=== PATIENT | male | born 1960 | race African-American/Black ===

== ENCOUNTER 2016-07-04 11:20 | Emergency (ER) | payer OTHER ==
[~2016-07-04 11:20] MED LIST: ASAB PO; COREG6 PO; FESO4 PO; FLOMAX4 PO; GLUCPH PO; INSNOVR SC; LEVEMFLXPN SC; LEVEMIR SC; NOVOLOG SC; NOVOLOG SQ; PRILOSEC OTC20 MG PO
[2016-07-04 13:07] LABS: ASCORBIC ACID (UR NOT ORDER) NEG (NEG); BILIRUBIN, URINE NEGATIVE (NEG); ER URINALYSIS TAT 0 Hrs 19 Mins; KETONE, URINE NEGATIVE (NEG); LEUKOCYTE ESTERASE(NOT OR NEG (NEG); NITRITE (URINE) NEG (NEG); WBC (NOT ORDERED) (RFLEX) 1 (0-5)
[2016-07-04 14:18] LABS: BASOPHILS 0.4 %; BASOPHILS ABSOLUTE 0.02 10/3/uL (0.0-0.16); EOSINOPHILS 0.4 %; EOSINOPHILS ABSOLUTE 0.02 10/3/uL (0.0-0.53); ER CBC TAT 0 Hrs 13 Mins; HEMATOCRIT 35.1 % (40.0-51.0); HEMOGLOBIN 11.2 g/dL (13.6-17.8); IMMATURE GRANULOCYTES 1.4 %; IMMATURE GRANULOCYTES ABSOLUTE 0.08 10/3/uL (0.0-0.11); LYMPHOCYTES 15.8 %; LYMPHOCYTES ABSOLUTE 0.89 10/3/uL (0.67-4.30); MANUAL DIFF NO %; MEAN CORPUS HGB CONC 31.9 g/dL (32.0-36.0); MEAN CORPUSCULAR VOLUME 87.8 fL (80-100); MEAN PLATELET VOLUME 9.2 fL (9.2-13.0); MONOCYTES 12.7 %; MONOCYTES ABSOLUTE 0.72 10/3/uL (0.21-1.20); NEUTROPHILS 69.3 %; NEUTROPHILS ABSOLUTE 3.92 10/3/uL (2.02-8.40); PLATELET COUNT 171 10/3/uL (150-400); RBC DISTRIBUTION WIDTH 16.1 % (12.0-16.0); WHITE BLOOD CELLS 5.7 10/3/uL (4.5-10.5)
[2016-07-04 16:06] LABS: ALKALINE PHOSPHATASE 81 U/L (45-117); CALCIUM, SERUM 8.8 MG/DL (8.5-10.4); POTASSIUM, SERUM 4.3 MMOL/L (3.5-5.3); SGOT(AST) 48 U/L (5-40); SGPT(ALT) 39 U/L (5-65); TOTAL BILIRUBIN 0.2 MG/DL (0-1.2)
[2016-07-04 16:07] LABS: A/G RATIO 0.7 (0.7-1.9); ALBUMIN 2.9 G/DL (3.5-5.0); BUN (BLOOD UREA NITROGEN) 16 MG/DL (6-23); CHLORIDE, SERUM 105 MMOL/L (96-112); CO2 (CARBON DIOXIDE) 32 MMOL/L (24-34); GFR AFRICAN AMERICAN 86 ML/MIN (>=60); GFR NON AFRICAN AMERICAN 74 ML/MIN (>=60); GLUCOSE, SERUM 134 MG/DL (60-99); SODIUM, SERUM 143 MMOL/L (135-148); TOTAL PROTEIN 6.9 G/DL (6.0-8.5)
[2016-07-28] MEDS ORDERED: INSNOVR SC ×2 (12:57→12:58)
[2016-07-28] MEDS ORDERED: FOLIC ACID400 MC1 PO (13:06)
[2016-07-28] MEDS ORDERED: NOVOLOG SC (13:19)
[2016-10-12] MEDS ORDERED: T PO (22:48)
[2016-10-12] MEDS ORDERED: ASAB PO (22:48)
[2016-10-12] MEDS ORDERED: COREG PO (22:48)
[2016-10-12] MEDS ORDERED: FOLIC PO (23:07)
[2016-10-12] MEDS ORDERED: LEVEMIR SC (23:08)
[2016-10-12] MEDS ORDERED: Humalog Inj SC (23:08)
[2016-10-12] MEDS ORDERED: INSNOVR SC (23:08)
[2016-10-12] MEDS ORDERED: FLOMAX PO (23:09)
[2016-10-20] MEDS ORDERED: DSS PO (12:02)
[2016-10-20] MEDS ORDERED: MAG CITRATE PO (12:03)
[2016-10-20] MEDS ORDERED: MOMUD PO (12:04)
[2016-10-20] MEDS ORDERED: LEVEMIR SC (12:04)
[2016-10-20] MEDS ORDERED: DUONEB INH (12:11)
[2016-10-30] MEDS ORDERED: *UNABLE3 ×2 (08:49→08:51)
[2016-10-30] MEDS ORDERED: HUMALOG SC (08:52)
[2016-10-30] MEDS ORDERED: COREG3 PO (08:52)
[2016-10-30] MEDS ORDERED: FLOMAX4 PO (08:52)
[2016-10-30] MEDS ORDERED: LEVEMIR SC (08:53)
[2016-10-31] MEDS ORDERED: LEVEMIR SC (14:16)
[2016-10-31] MEDS ORDERED: VITAMIN C PO (14:17)
[2016-10-31] MEDS ORDERED: Multiple Vit Tab (14:17)
[2016-11-03] MEDS ORDERED: COREG6 PO (09:13)
== END 2016-07-04 16:18 | disposition home or self-care (01) ==
LOC: ER 11:20
PROVIDERS: Emergency Medicine
DX: E10.649 Type 1 diabetes mellitus with hypoglycemia without coma (principal); Z79.82 Long term (current) use of aspirin; Z79.4 Long term (current) use of insulin
CPT/HCPCS: 80053; 81001; 82962; 83690; 85025; 99284

== ENCOUNTER 2016-07-10 12:15 | Emergency (ER) | payer OTHER ==
[2016-07-10 12:33] LABS: ASCORBIC ACID (UR NOT ORDER) NEG (NEG); BILIRUBIN, URINE NEGATIVE (NEG); ER URINALYSIS TAT 0 Hrs 07 Mins; KETONE, URINE 20 MG/DL (NEG); LEUKOCYTE ESTERASE(NOT OR NEG (NEG); NITRITE (URINE) NEG (NEG); WBC (NOT ORDERED) (RFLEX) < 1 (0-5)
[2016-07-10 12:55] LABS: AMPHETAMINES (NOT ORD) NEG (NEG); BARBITURATES (NOT ORDERED NEG (NEG); BENZODIAZEPINES (NOT ORD) NEG (NEG); CANNABINOIDS (THC) NEG (NEG); COCAINE (NOT ORDERED) NEG (NEG); OPIATES NEG (NEG); PHENCYCLIDINE(PCP) NEG (NEG); TRICYCLICS NEG (NEG)
[2016-07-28] MEDS ORDERED: INSNOVR SC ×2 (12:57→12:58)
[2016-07-28] MEDS ORDERED: FOLIC ACID400 MC1 PO (13:06)
[2016-07-28] MEDS ORDERED: NOVOLOG SC (13:19)
[2016-10-12] MEDS ORDERED: ASAB PO (22:48)
[2016-10-12] MEDS ORDERED: T PO (22:48)
[2016-10-12] MEDS ORDERED: COREG PO (22:48)
[2016-10-12] MEDS ORDERED: FOLIC PO (23:07)
[2016-10-12] MEDS ORDERED: LEVEMIR SC (23:08)
[2016-10-12] MEDS ORDERED: INSNOVR SC (23:08)
[2016-10-12] MEDS ORDERED: Humalog Inj SC (23:08)
[2016-10-12] MEDS ORDERED: FLOMAX PO (23:09)
[2016-10-20] MEDS ORDERED: DSS PO (12:02)
[2016-10-20] MEDS ORDERED: MAG CITRATE PO (12:03)
[2016-10-20] MEDS ORDERED: LEVEMIR SC (12:04)
[2016-10-20] MEDS ORDERED: MOMUD PO (12:04)
[2016-10-20] MEDS ORDERED: DUONEB INH (12:11)
[2016-10-30] MEDS ORDERED: *UNABLE3 ×2 (08:49→08:51)
[2016-10-30] MEDS ORDERED: FLOMAX4 PO (08:52)
[2016-10-30] MEDS ORDERED: COREG3 PO (08:52)
[2016-10-30] MEDS ORDERED: HUMALOG SC (08:52)
[2016-10-30] MEDS ORDERED: LEVEMIR SC (08:53)
[2016-10-31] MEDS ORDERED: LEVEMIR SC (14:16)
[2016-10-31] MEDS ORDERED: Multiple Vit Tab (14:17)
[2016-10-31] MEDS ORDERED: VITAMIN C PO (14:17)
[2016-11-03] MEDS ORDERED: COREG6 PO (09:13)
== END 2016-07-10 13:05 | disposition home or self-care (01) ==
LOC: ER 12:15
PROVIDERS: Emergency Medicine
DX: E11.65 Type 2 diabetes mellitus with hyperglycemia (principal); R53.1 Weakness; Z76.5 Malingerer [conscious simulation]; Z79.4 Long term (current) use of insulin; Z79.82 Long term (current) use of aspirin; Z79.899 Other long term (current) drug therapy
CPT/HCPCS: 71010; 80053; 80305; 81001; 82009; 83690; 85025; 99285

== ENCOUNTER 2016-08-04 08:32 | Day surgery (SDC) | payer OTHER ==
[2016-08-01 12:29] LABS: BASOPHILS 0.2 %; BASOPHILS ABSOLUTE 0.01 10/3/uL (0.0-0.16); EOSINOPHILS 0.5 %; EOSINOPHILS ABSOLUTE 0.03 10/3/uL (0.0-0.53); HEMATOCRIT 37.9 % (40.0-51.0); HEMOGLOBIN 12.1 g/dL (13.6-17.8); IMMATURE GRANULOCYTES 0.2 %; IMMATURE GRANULOCYTES ABSOLUTE 0.01 10/3/uL (0.0-0.11); LYMPHOCYTES ABSOLUTE 2.45 10/3/uL (0.67-4.30); MEAN CORPUS HGB CONC 31.9 g/dL (32.0-36.0); MEAN CORPUSCULAR HEMOGLOB 27.4 pg (26.0-34.0); MEAN CORPUSCULAR VOLUME 85.9 fL (80-100); MEAN PLATELET VOLUME 11.1 fL (9.2-13.0); MONOCYTES 8.8 %; MONOCYTES ABSOLUTE 0.49 10/3/uL (0.21-1.20); NEUTROPHILS 46.3 %; NEUTROPHILS ABSOLUTE 2.58 10/3/uL (2.02-8.40); RBC DISTRIBUTION WIDTH 15.4 % (12.0-16.0); RED CELL COUNT 4.41 10/6/uL (4.7-6.1); WHITE BLOOD CELLS 5.6 10/3/uL (4.5-10.5)
[2016-08-01 12:30] LABS: MANUAL DIFF NO %; PLATELET COUNT 299 10/3/uL (150-400)
[2016-08-01 12:37] LABS: CHLORIDE, SERUM 102 MMOL/L (96-112); CREATININE 1.37 MG/DL (0.70-1.30); GFR AFRICAN AMERICAN 66 ML/MIN (>=60); GFR NON AFRICAN AMERICAN 57 ML/MIN (>=60); POTASSIUM, SERUM 3.7 MMOL/L (3.5-5.3); SODIUM, SERUM 137 MMOL/L (135-148)
[2016-08-01 12:38] LABS: BUN (BLOOD UREA NITROGEN) 21 MG/DL (6-23); CALCIUM, SERUM 9.9 MG/DL (8.5-10.4); CO2 (CARBON DIOXIDE) 26 MMOL/L (24-34); GLUCOSE, SERUM 239 MG/DL (60-99)
[~2016-08-04 08:32] MED LIST changes: +FOLIC ACID400 MC1 PO
[2016-10-12] MEDS ORDERED: T PO (22:48)
[2016-10-12] MEDS ORDERED: ASAB PO (22:48)
[2016-10-12] MEDS ORDERED: COREG PO (22:48)
[2016-10-12] MEDS ORDERED: FOLIC PO (23:07)
[2016-10-12] MEDS ORDERED: INSNOVR SC (23:08)
[2016-10-12] MEDS ORDERED: Humalog Inj SC (23:08)
[2016-10-12] MEDS ORDERED: LEVEMIR SC (23:08)
[2016-10-12] MEDS ORDERED: FLOMAX PO (23:09)
[2016-10-20] MEDS ORDERED: DSS PO (12:02)
[2016-10-20] MEDS ORDERED: MAG CITRATE PO (12:03)
[2016-10-20] MEDS ORDERED: MOMUD PO (12:04)
[2016-10-20] MEDS ORDERED: LEVEMIR SC (12:04)
[2016-10-20] MEDS ORDERED: DUONEB INH (12:11)
[2016-10-30] MEDS ORDERED: *UNABLE3 ×2 (08:49→08:51)
[2016-10-30] MEDS ORDERED: COREG3 PO (08:52)
[2016-10-30] MEDS ORDERED: HUMALOG SC (08:52)
[2016-10-30] MEDS ORDERED: FLOMAX4 PO (08:52)
[2016-10-30] MEDS ORDERED: LEVEMIR SC (08:53)
[2016-10-31] MEDS ORDERED: LEVEMIR SC (14:16)
[2016-10-31] MEDS ORDERED: VITAMIN C PO (14:17)
[2016-10-31] MEDS ORDERED: Multiple Vit Tab (14:17)
[2016-11-03] MEDS ORDERED: COREG6 PO (09:13)
== END 2016-08-04 23:59 | disposition home or self-care (01) ==
LOC: SDC 08:32
PROVIDERS: Urology
DX: Z85.9 Personal history of malignant neoplasm, unspecified (principal); Z53.9 Procedure and treatment not carried out, unspecified reason
CPT/HCPCS: 80048; 82947; 82962; 85025; 88112; 93005; A9270-GY

== ENCOUNTER 2016-08-07 07:42 | Observation (INO) | payer OTHER ==
--- NOTE | ~2016-08-07 | DS ---
Discharge Summary [facility] [address] [place]. [address] NAME: DANIEL BIANCHI : 58 STATUS : DIS IN PAT#: [id number] AGE: 56 ADM/REG DATE : 08/07/16 MR#: [id number] REPORT SERV DATE: 08/09/16 DICTATED BY: EDUARDO SUAZO DATE: 08/08/16 REPORT STATUS : Draft TRANSCRIBED BY: MODL DATE: 08/08/16 ADMISSION DATE: 08/07/2016 DISCHARGE DATE: 08/08/2016 DISCHARGE DIAGNOSES: 1. Type 1 diabetes mellitus. 2. Previous transitional cell cancer of the bladder by history. 3. Cocaine abuse. 4. Hypertension. 5. Chronic obstructive pulmonary disease. 6. History of possible hepatitis. 7. History of old stroke. HISTORY: This patient urologist Dr. Miller has wanted to do a cystoscopy to check his bladder for recurrent transitional cell cancer, but each time she has brought him in for the last two attempts, the procedure was canceled either due to hypertension or uncontrolled diabetes. So, Urology asked our team to put the patient in the hospital first and get those processes under control. He was placed in the hospital on 08/07/2016. His sugars were not ideal, but well enough to go ahead with his cystoscopy, which was reported as normal, and Dr. Miller indicates that he can go home and follow up with his PCP, and in the office with her. At discharge, blood pressure is in the 120s over the low 90s. The patient is eating, ambulating now, no nausea. His A1c is 12.3%. He tells me he was only taking half of his dose of 30 units of Levemir per day because it would not last a month before the vial would run out. However, I discussed with him that a vial of Levemir has 1000 units in divided by 30 days that should last him 33 days, it is unclear why he has been running out prematurely. The patient does admit that he has been using cocaine, we talked about the danger of this and the need to discontinue. He states he is motivated to try to stop. He states he has a new primary provider which is Al[facility] at [facility]. 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 DISCHARGE MEDICATIONS: Levemir 30 units daily, Humalog level 1 a.c. and at bedtime, new prescriptions were written, Tylenol p.r.n. mild pain, Coreg 6.25 mg daily, aspirin 81 mg daily, folic acid daily, Flomax 0.4 mg every supper. I have increased his Coreg to b.i.d. He is to follow up with his PCP in the next week or two, and Dr. Miller thereafter. Case management did check to see which insulins were covered best by his insurance and includes the Levemir and Humalog. I spent 43 minutes today with the patient and with discharge planning . DICTATED BY: Eduardo Suazo M.D. Discharge Summary [address] [address] NAME: DANIEL BIANCHI : 58 STATUS : DIS IN PAT#: [id number] AGE: 56 ADM/REG DATE : 08/07/16 MR#: [id number] REPORT SERV DATE: 08/09/16 DICTATED BY: EDUARDO SUZAO DATE: 08/08/16 REPORT STATUS : Draft TRANSCRIBED BY: COBY DATE: 08/08/16 ROLA/COBY Eduardo Suazo M.D. / [id number] CC: Monica Mcdonald M.D. [facility]
--- NOTE | ~2016-08-07 | HP ---
History And Physical [address] [place]. [address] NAME: DANIEL BIANCHI : 58 STATUS : ADM IN [facility]#: [id number] AGE: 56 ADM/REG DATE : 08/07/16 MR#: [id number] REPORT SERV DATE: 08/07/16 DICTATED BY: MACY TALBERT DATE: 08/07/16 REPORT STATUS : Draft TRANSCRIBED BY: MODL DATE: 08/07/16 DATE OF ADMISSION: 08/07/2016 CHIEF COMPLAINT: Diabetes, hypertension. HISTORY OF PRESENT ILLNESS: The patient is a 56-year-old male. He has multiple hospitalizations here in the past for DKA. He has a history of transitional cell carcinoma of the bladder. He also reports he has a remote history of possible coronary artery disease. He presents today as an elective admission prior to a cystoscopy tomorrow. The patient has had apparently two procedures cancelled, one for elevated blood pressure and one for elevated blood sugar. Because of the need to proceed with diagnosis and treatment, and the patient's inability to control his symptoms outpatient prior to procedures, he has been admitted to stabilize his blood pressure and sugar before undergoing the procedure in the morning. The patient states that his blood pressure and diabetes get out of control because he cannot maintain his medications. He states that he will sometimes alter the doses, give doses to stretch the medications. He did not take his blood sugar this morning. He is otherwise without complaint today. PAST MEDICAL HISTORY: As covered above. In addition, he has COPD. PAST SURGICAL HISTORY: He had a TURP in 2005 for BPH. CURRENT MEDICATIONS: Awaiting his home list. ALLERGIES: HE REPORTS NO KNOWN DRUG ALLERGIES, ALTHOUGH HIS PREVIOUS LIST, HE HAS NOTED ALLERGY TO METFORMIN. FAMILY HISTORY: Father of cancer. Mother is still living. SOCIAL HISTORY: Previous smoker, currently smoking 3-4 cigarettes a day. No EtOH. REVIEW OF SYSTEMS: HEENT: He reports no dizziness, headache. CARDIOVASCULAR: No chest pain or palpitations. PULMONARY: He complains of fatigue and some exertional dyspnea on occasion. GI: No nausea, vomiting, diarrhea. : No frequency, urgency, dysuria. NEUROMUSCULOSKELETAL: Positive for just general weakness. He also complains of insomnia. Otherwise, 10-point review of systems is negative. PHYSICAL EXAMINATION: VITAL SIGNS: Currently pending. GENERAL: He is awake, alert, appears appropriate. No acute distress. HEENT: Poor dentition. Otherwise, unremarkable. NECK: Supple. History And Physical [address] [place]. [address] NAME: DANIEL BIANCHI : 58 STATUS : ADM IN PAT#: [id number] AGE: 56 ADM/REG DATE : 08/07/16 MR#: [id number] REPORT SERV DATE: 08/07/16 DICTATED BY: MACY TALBERT DATE: 08/07/16 REPORT STATUS : Draft TRANSCRIBED BY: MODL DATE: 08/07/16 HEART: Regular rate and rhythm. LUNGS: Clear to auscultation without rhonchi, rales, or wheezes. ABDOMEN: Nontender. Nondistended. EXTREMITIES: No clubbing, cyanosis, or edema. NEUROLOGICAL: Grossly intact. LABORATORY DATA: None to review at this point. ASSESSMENT: The patient is a 56-year-old male with medical noncompliance, diabetes, hypertension, presenting for cystoscopy tomorrow for transitional cell cancer followup with inability to outpatient scope secondary to high blood pressure and sugars. PLAN: 1. The patient has been admitted. 2. Review his home medications when available. Check labs. Check urine drug screen. Notify Urology of arrival, expect cystoscopy in the morning. SHAYYF/RKL Macy Talbert M.D. / [id number] CC: Macy Talbert M.D.
--- NOTE | ~2016-08-07 | OP ---
[facility] [place] [address] [place]. [address] NAME: DANIEL BIANCHI : 58 STATUS : DIS IN PAT#: [id number] AGE: 56 ADM/REG DATE : 08/07/16 MR#: [id number] REPORT SERV DATE: 08/08/16 DICTATED BY: STEPHANI MILLER DATE: 08/08/16 REPORT STATUS : Draft TRANSCRIBED BY: COBY DATE: 08/08/16 DATE OF PROCEDURE: 08/08/2016 PREOPERATIVE DIAGNOSIS: History of transitional cell carcinoma of the bladder. POSTOPERATIVE DIAGNOSIS: History of transitional cell carcinoma of the bladder. PROCEDURE: Cystoscopy. ANESTHESIA: General. SPECIMENS: None. ESTIMATED BLOOD LOSS: None. COMPLICATIONS: None. DISPOSITION: Extubated to recovery room. HISTORY: This is a 56-year-old gentleman with history of transitional cell carcinoma, who presents today for the above-stated procedure. PROCEDURE IN DETAIL: After consent was obtained, the patient was taken to the operating room and placed on the operative table in a supine position. General anesthetic was induced. The patient was then placed in dorsal lithotomy position. His perineum was prepped and draped in the usual sterile fashion. Examination under anesthesia reveals normal external genitalia. Cystourethroscopy was performed with a 30 and 70-degree lens. He had normal urethral mucosa. He did have bilateral hypertrophy of the prostate gland with complete obstruction of bilateral lobes. He did not have a median lobe. He had no evidence of bladder masses. His previous resection site on the right lateral wall of the bladder is well healed. He had clear efflux from both ureteral orifices. His bladder was drained, scope and sheath were removed. His previous cytology test had returned to normal. He was awakened from his anesthetic, extubated, and taken to recovery room in good condition. Plan will be to see him back in four months for a cystoscopy and cytology. He may be discharged at the hospitalist service discretion from the Urology standpoint. SHAHEEN/COBY Stephani Miller M.D. / [id number] CC: [facility] [place] [address] [facility] [address] NAME: DANIEL BIANCHI : 58 STATUS : DIS IN PAT#: [id number] AGE: 56 ADM/REG DATE : 08/07/16 MR#: [id number] REPORT SERV DATE: 08/08/16 DICTATED BY: STEPHANI MILLER DATE: 08/08/16 REPORT STATUS : Draft TRANSCRIBED BY: MODCleve DATE: 08/08/16 Gavin Suazo M.D.
[2016-08-07 10:58] LABS: BASOPHILS 0.3 %; BASOPHILS ABSOLUTE 0.02 10/3/uL (0.0-0.16); EOSINOPHILS 0.8 %; EOSINOPHILS ABSOLUTE 0.05 10/3/uL (0.0-0.53); HEMATOCRIT 37.2 % (40.0-51.0); HEMOGLOBIN 12.3 g/dL (13.6-17.8); IMMATURE GRANULOCYTES 0.3 %; IMMATURE GRANULOCYTES ABSOLUTE 0.02 10/3/uL (0.0-0.11); LYMPHOCYTES 36.2 %; LYMPHOCYTES ABSOLUTE 2.26 10/3/uL (0.67-4.30); MEAN CORPUS HGB CONC 33.1 g/dL (32.0-36.0); MEAN CORPUSCULAR HEMOGLOB 28.3 pg (26.0-34.0); MEAN CORPUSCULAR VOLUME 85.7 fL (80-100); MEAN PLATELET VOLUME 10.2 fL (9.2-13.0); MONOCYTES 5.8 %; MONOCYTES ABSOLUTE 0.36 10/3/uL (0.21-1.20); NEUTROPHILS 56.6 %; NEUTROPHILS ABSOLUTE 3.54 10/3/uL (2.02-8.40); PLATELET COUNT 283 10/3/uL (150-400); RBC DISTRIBUTION WIDTH 15.5 % (12.0-16.0); RED CELL COUNT 4.34 10/6/uL (4.7-6.1); WHITE BLOOD CELLS 6.3 10/3/uL (4.5-10.5)
[2016-08-07 11:01] LABS: MANUAL DIFF NO %
[2016-08-07 11:05] LABS: BENZODIAZEPINES (NOT ORD) NEG (NEG); PHENCYCLIDINE(PCP) NEG (NEG)
[2016-08-07 11:06] LABS: AMPHETAMINES (NOT ORD) NEG (NEG); BARBITURATES (NOT ORDERED NEG (NEG); CANNABINOIDS (THC) NEG (NEG); COCAINE (NOT ORDERED) POS (NEG); OPIATES NEG (NEG); TRICYCLICS NEG (NEG)
[2016-08-07 11:10] LABS: BUN (BLOOD UREA NITROGEN) 28 MG/DL (6-23); CALCIUM, SERUM 9.6 MG/DL (8.5-10.4); CHLORIDE, SERUM 104 MMOL/L (96-112); CO2 (CARBON DIOXIDE) 26 MMOL/L (24-34); CREATININE 1.48 MG/DL (0.70-1.30); GFR AFRICAN AMERICAN 60 ML/MIN (>=60); GFR NON AFRICAN AMERICAN 52 ML/MIN (>=60); GLUCOSE, SERUM 301 MG/DL (60-99); POTASSIUM, SERUM 4.1 MMOL/L (3.5-5.3); SODIUM, SERUM 138 MMOL/L (135-148)
[2016-08-08 06:22] LABS: CALCIUM, SERUM 8.7 MG/DL (8.5-10.4); CHLORIDE, SERUM 105 MMOL/L (96-112); CO2 (CARBON DIOXIDE) 24 MMOL/L (24-34); GFR AFRICAN AMERICAN 77 ML/MIN (>=60); GFR NON AFRICAN AMERICAN 67 ML/MIN (>=60); GLUCOSE, SERUM 308 MG/DL (60-99); POTASSIUM, SERUM 4.6 MMOL/L (3.5-5.3); SODIUM, SERUM 137 MMOL/L (135-148)
[2016-08-08 06:23] LABS: BUN (BLOOD UREA NITROGEN) 21 MG/DL (6-23)
[2016-08-08 06:50] LABS: HEMOGLOBIN 10.5 g/dL (13.6-17.8)
[2016-08-08 06:51] LABS: HEMATOCRIT 31.8 % (40.0-51.0)
[2016-08-08] MEDS ORDERED: FLOMAX4 PO (10:28)
[2016-08-08] MEDS ORDERED: HUMALOG SC (17:23)
[2016-08-08] MEDS ORDERED: T PO (17:29)
[2016-10-12] MEDS ORDERED: ASAB PO (22:48)
[2016-10-12] MEDS ORDERED: T PO (22:48)
[2016-10-12] MEDS ORDERED: COREG PO (22:48)
[2016-10-12] MEDS ORDERED: FOLIC PO (23:07)
[2016-10-12] MEDS ORDERED: Humalog Inj SC (23:08)
[2016-10-12] MEDS ORDERED: LEVEMIR SC (23:08)
[2016-10-12] MEDS ORDERED: INSNOVR SC (23:08)
[2016-10-12] MEDS ORDERED: FLOMAX PO (23:09)
[2016-10-20] MEDS ORDERED: DSS PO (12:02)
[2016-10-20] MEDS ORDERED: MAG CITRATE PO (12:03)
[2016-10-20] MEDS ORDERED: LEVEMIR SC (12:04)
[2016-10-20] MEDS ORDERED: MOMUD PO (12:04)
[2016-10-20] MEDS ORDERED: DUONEB INH (12:11)
[2016-10-30] MEDS ORDERED: *UNABLE3 ×2 (08:49→08:51)
[2016-10-30] MEDS ORDERED: FLOMAX4 PO (08:52)
[2016-10-30] MEDS ORDERED: HUMALOG SC (08:52)
[2016-10-30] MEDS ORDERED: COREG3 PO (08:52)
[2016-10-30] MEDS ORDERED: LEVEMIR SC (08:53)
[2016-10-31] MEDS ORDERED: LEVEMIR SC (14:16)
[2016-10-31] MEDS ORDERED: Multiple Vit Tab (14:17)
[2016-10-31] MEDS ORDERED: VITAMIN C PO (14:17)
[2016-11-03] MEDS ORDERED: COREG6 PO (09:13)
== END 2016-08-08 18:34 | disposition home or self-care (01) ==
LOC: 4SO 07:42
PROVIDERS: Anesthesiology; Internal Medicine; Urology
PROC: 0TJB8ZZ Inspection of Bladder, Via Natural or Artificial Opening Endoscopic (ICD-10-PCS; principal; 2016-08-08 13:15)
DX: N40.0 Benign prostatic hyperplasia without lower urinary tract symptoms (principal); I10 Essential (primary) hypertension; I25.10 Atherosclerotic heart disease of native coronary artery without angina pectoris; E11.9 Type 2 diabetes mellitus without complications; G62.9 Polyneuropathy, unspecified; F17.200 Nicotine dependence, unspecified, uncomplicated; J44.9 Chronic obstructive pulmonary disease, unspecified; D64.9 Anemia, unspecified; F41.9 Anxiety disorder, unspecified; F14.10 Cocaine abuse, uncomplicated; M19.90 Unspecified osteoarthritis, unspecified site; Z86.73 Personal history of transient ischemic attack (TIA), and cerebral infarction without residual deficits; Z79.82 Long term (current) use of aspirin; Z85.51 Personal history of malignant neoplasm of bladder; Z79.899 Other long term (current) drug therapy; Z98.890 Other specified postprocedural states
CPT/HCPCS: 80048; 80305; 82962; 83036; 85014; 85018; 85025; 93005; 96372; A9270-GY; G0378; J2250; J2405; J3010

== ENCOUNTER 2016-08-25 10:44 | Inpatient (IN) | payer OTHER ==
--- NOTE | ~2016-08-25 | IDS ---
Interim Discharge Summary [facility] [address] [place]. [address] NAME: DANIEL BIANCHI : 58 STATUS : ADM IN PAT#: [id number] AGE: 56 ADM/REG DATE : 08/25/16 MR#: [id number] REPORT SERV DATE: 08/26/16 DICTATED BY: GHADA ANN IV DATE: 08/26/16 REPORT STATUS : Draft TRANSCRIBED BY: COBY DATE: 08/26/16 ADMISSION DATE: 08/25/2016 DISCHARGE DATE: Date of the admission to the ICU is 08/25/2016. Date of transfer to the floor is 08/26/2016. ADMITTING DIAGNOSES: 1. Recurrent DKA, now reversed. 2. Medication noncompliance. 3. Acute on chronic kidney injury. 4. Electrolyte abnormalities being corrected. 5. Hypertension. 6. Cocaine abuse with positive urine drug screen on admission and ongoing tobacco dependency. CONSULTANTS: None. PROCEDURES: None. CURRENT MEDICATIONS: 1. Aspirin 81 mg daily. 2. Coreg 6.25 mg twice a day. 3. Flomax 0.4 mg daily. 4. Folic acid 1 mg daily. 5. Level 2 insulin sliding scale. 6. Levemir 20 units b.i.d. though transitioning, he is receiving additional 10 units at night and 30 units this morning. 7. Protonix 40 mg p.o. daily. HOSPITAL COURSE: The patient presented on 08/25/2016, with his usual symptoms of nausea, vomiting, and unable to keep anything down. He presented to the emergency room where he was found to be in DKA with a blood sugar of 815, a positive anion gap, and a pH of 7.10. His hemoglobin A1c was markedly elevated to 11.3. He was placed on insulin drip. He was noted to have worsening of his baseline elevated creatinine which has improved though has not yet normalized. His anion gap normalized and his blood sugar markedly improved. His insulin drip was stopped this morning. He was transitioned to Levemir. He was placed on 30 units this morning. I will give 10 units at night though transition to 20 units b.i.d. He will be given a level 2 insulin sliding scale. He was tolerating a diet which will be continued. IV fluids were decreased. He received electrolyte replacement with repeat labs planned for tomorrow. It was felt that he was safe for transfer to the floor. We will ask Hospitalist Service to assume primary responsibilities. Interim Discharge Summary [place] [id number] [facility] [place] [address] NAME: DANIEL BIANCHI : 58 STATUS : ADM IN PAT#: [id number] AGE: 56 ADM/REG DATE : 08/25/16 MR#: [id number] REPORT SERV DATE: 08/26/16 DICTATED BY: GHADA ANN IV DATE: 08/26/16 REPORT STATUS : Draft TRANSCRIBED BY: COBY DATE: 08/26/16 ALEKSANDAR/COBY Ghada Ann IV, M.D. / [id number] CC: Carlos Torres MD
--- NOTE | ~2016-08-25 | HP ---
History And Physical [address] [place]. [address] NAME: DANIEL BIANCHI : 58 STATUS : ADM IN PAT#: [id number] AGE: 56 ADM/REG DATE : 08/25/16 MR#: [id number] REPORT SERV DATE: 08/25/16 DICTATED BY: CHARISSE GRUBBS DATE: 08/25/16 REPORT STATUS : Draft TRANSCRIBED BY: MODL DATE: 08/25/16 DATE OF ADMISSION: 08/25/2016 CHIEF COMPLAINT: Nausea, vomiting. HISTORY OF PRESENT ILLNESS: The patient is a 56-year-old gentleman with a past medical history of type 1 diabetes, cocaine abuse, COPD, and hypertension, who presents to the MICU today after showing up to the ER in DKA. Per the patient, he ran out of his Levemir as well as his COPD medications yesterday, and he took his last dose of Levemir yesterday morning. He was feeling okay yesterday, but then this morning began having worsening nausea and vomiting and was unable to keep anything down. He has also had crampy abdominal pain since this morning as well. He states that he last used cocaine several days ago. Otherwise, he denies fevers, chills, sweats, or diarrhea. His last hospitalization for DKA was back in July of this year. He has a history of recurrent episodes of DKA from medication noncompliance. In the emergency room, was found to have a pH of 7.0, hyperkalemia, and DKA, so he was started on IV fluids, insulin drip, and admitted to the MICU. PAST MEDICAL HISTORY: 1. Type 1 diabetes with recurrent admissions for DKA. 2. Hypertension. 3. History of cocaine abuse. 4. History of transitional cell carcinoma of the bladder. 5. COPD. 6. History of CVA. HOME MEDICATIONS: See medication reconciliation form. ALLERGIES: NO KNOWN DRUG ALLERGIES. SOCIAL HISTORY: History of cocaine abuse and tobacco use. No alcohol or IV drug abuse reported. FAMILY HISTORY: Positive for cancer in his father. REVIEW OF SYSTEMS: 10-point review of systems negative except as mentioned in the HPI. PHYSICAL EXAMINATION: VITAL SIGNS: Temperature 97.6, heart rate 98, respiratory rate 12, blood pressure 129/70. GENERAL: Sleepy gentleman, no acute distress. HEENT: Pupils equal, round, and reactive to light. Extraocular movements intact. Dry mucous membranes. NECK: Supple. Nontender. No lymphadenopathy. No thyromegaly. No jugular venous distention. LUNGS: Clear to auscultation bilaterally. History And Physical [address] [place]. [address] NAME: DANIEL BIANCHI : 58 STATUS : ADM IN [facility]#: [id number] AGE: 56 ADM/REG DATE : 08/25/16 MR#: [id number] REPORT SERV DATE: 08/25/16 DICTATED BY: CHARISSE GRUBBS DATE: 08/25/16 REPORT STATUS : Draft TRANSCRIBED BY: COBY DATE: 08/25/16 CARDIOVASCULAR: Regular rate and rhythm. No murmurs, rubs, or gallops. ABDOMEN: Soft, nontender, nondistended. Positive bowel sounds. No hepatosplenomegaly. EXTREMITIES: No cyanosis, clubbing, or edema. NEUROLOGIC: Alert and oriented x3. Cranial nerves intact. PSYCH: Mood appropriate. LABS AND IMAGING: CBC within normal limits. Metabolic profile remarkable for sodium of 126, potassium of 6.3, chloride of 91, CO2 of 10, BUN of 55, and creatinine of 3. Cardiac enzymes within normal limits. Urinalysis negative except for positive ketones. Chest x-ray shows no acute cardiopulmonary process. Blood gas with a pH of 7.1, pCO2 of 23. ASSESSMENT AND PLAN: The patient is a 56-year-old gentleman with a past medical history of diabetic ketoacidosis, cocaine abuse, and chronic obstructive pulmonary disease, who presents with diabetic ketoacidosis, acute renal failure, and hyperkalemia. 1. Diabetic ketoacidosis. The patient will be placed on diabetic ketoacidosis protocol. He has been started on insulin drip as well as IV fluids. We will continue these and get BMP, mag, and phos q.6 hours. Once his glucose drops less than 200, we will decrease his insulin drip and change his IV fluids to D5 half-normal saline. We will monitor his electrolytes closely. Once his anion gap closes and he is tolerating p.o., we will transition him over to subcutaneous insulin. 2. Hyperkalemia secondary to his diabetic ketoacidosis. Currently giving IV fluids. We will monitor his potassium q.6 hours. Once it begins to fall appropriately, we will add it back to his IV fluids. No EKG changes at this time. 3. Acute renal failure. Again secondary to diabetic ketoacidosis and dehydration. We will give him IV fluids. Monitor his urine output, electrolytes, and creatinine closely. 4. Chronic obstructive pulmonary disease. We will continue bronchodilators. 5. The patient will be on heparin for deep venous thrombosis prophylaxis and Protonix for gastrointestinal prophylaxis. 6. The patient is at high risk for sudden clinically significant or life-threatening deterioration in his condition. Total critical care time spent on this patient was 40 minutes. RENY/COBY Charisse Grubbs MD / [id number] CC: Charisse Grubbs MD
--- NOTE | ~2016-08-25 | DS ---
Discharge Summary [address] [place]. [address] NAME: DANIEL BIANCHI : 58 STATUS : ADM IN PAT#: [id number] AGE: 56 ADM/REG DATE : 08/25/16 MR#: [id number] REPORT SERV DATE: 08/31/16 DICTATED BY: MACY TRUONG DATE: 08/31/16 REPORT STATUS : Draft TRANSCRIBED BY: MODL DATE: 08/31/16 ADMISSION DATE: 08/25/2016 DISCHARGE DATE: 08/31/2016 FINAL HOSPITAL DIAGNOSES: 1. Diabetic ketoacidosis. 2. Chronic obstructive pulmonary disease. 3. History of transitional cell carcinoma of the bladder. 4. Hypertension. 5. Substance abuse. 6. Medical noncompliance. CONSULTATIONS: None. PROCEDURES: None. CURRENT PHYSICAL FINDINGS AND HISTORY OF PRESENT ILLNESS: Please see initial H and P by Dr. Torres on 08/25/2016, as well as interim summary on 08/26/2016. In brief, the patient is a 56 year-old male with multiple hospitalizations for DKA and urological problems, was most recently discharged on 08/09/2016, presented with DKA on 08/25/2016. Vital signs at time of presentation blood pressure was 108/74, he has had no temperature during his hospital stay. LAB WORK: Initial ABG was a pH of 7.1, CO2 of 23, an O2 of 104, bicarb is 6.9, sat of 96%. Initial BMP showed a potassium of 6.3, a creatinine of 3.01. He is currently back down to his approximate baseline of 1.3. Procalcitonin was 0.26, blood sugar was 815, troponin was less than 0.02 x2. A1c was 11.3. White count was 8.1. Urinalysis was unremarkable. Urine chemistry was positive for cocaine. Chest x-ray on 08/25/2016 and on 08/27/2016 are normal. HOSPITAL COURSE: The patient was initially admitted to the ICU given his high sugar and pH. He was started on insulin drip, IV fluids, serial labs, infectious trigger was ruled out. He responded well to treatment and was transitioned over to subcutaneous and discharge from the unit after his acidosis had cleared and he was tolerating p.o. and sliding scale insulin. He was initially seen by Dr. Chavez and he was placed on his home Levemir. His dietary requests were honored for double portion trays and he was started on meal coverage insulin also. I assumed his care on 08/29/2016. His a.m. blood sugars were high and he was given additional 10 via sliding scale. He then had decreased blood sugars through the evening and it was elected to decrease his 30 to 25 the following day, and decrease his meal insulin and continue sliding scale. He did relatively well over the past 48 hours. He still had some a.m. hyperglycemia; however, he was very reluctant to take any at bedtime insulin with previous issues of bottoming out in the past. He had no other significant problems during his hospital stay. Because of his frequent hospitalizations, additional counseling and attempts were made to control his volatile blood sugars as well as could be done this time. Case Management worked with him on procuring his insulin. Assistance was given for a followup appointment with his PCP. He was discharged on 08/31/2016 reaching maximal hospital benefit. Discharge Summary [address] [address] NAME: DANIEL BIANCHI : 58 STATUS : ADM IN PAT#: [id number] AGE: 56 ADM/REG DATE : 08/25/16 MR#: [id number] REPORT SERV DATE: 08/31/16 DICTATED BY: MACY TRUONG DATE: 08/31/16 REPORT STATUS : Draft TRANSCRIBED BY: COBY DATE: 08/31/16 DISCHARGE MEDICATIONS: Aspirin 81, Coreg 6.25, folic acid 1 mg, Levemir 25 q.a.m. sliding scale level 2, Flomax 0.4, Tylenol p.r.n. DISCHARGE PLAN: Seven to 10 day [facility]. Return for any recurrent symptoms end dictation. DICTATED BY: Monica Day/COBY Macy Truong M.D. / [id number] CC: Macy Truong M.D.
[2016-08-25 09:44] LABS: BASOPHILS 0 %; EOSINOPHILS 0 %; HEMOGLOBIN 12.1 g/dL (13.6-17.8); IMMATURE GRANULOCYTES 0.4 %; IMMATURE GRANULOCYTES ABSOLUTE 0.03 10/3/uL (0.0-0.11); LYMPHOCYTES ABSOLUTE 0.97 10/3/uL (0.67-4.30); MEAN CORPUSCULAR HEMOGLOB 28.3 pg (26.0-34.0); MEAN PLATELET VOLUME 10.5 fL (9.2-13.0); MONOCYTES 3.5 %; MONOCYTES ABSOLUTE 0.28 10/3/uL (0.21-1.20); NEUTROPHILS 84.1 %; NEUTROPHILS ABSOLUTE 6.79 10/3/uL (2.02-8.40); RBC DISTRIBUTION WIDTH 15.1 % (12.0-16.0); RED CELL COUNT 4.28 10/6/uL (4.7-6.1); WHITE BLOOD CELLS 8.1 10/3/uL (4.5-10.5)
[2016-08-25 09:45] LABS: HEMATOCRIT 38.5 % (40.0-51.0); MANUAL DIFF NO %; MEAN CORPUS HGB CONC 31.4 g/dL (32.0-36.0); PLATELET COUNT 372 10/3/uL (150-400)
[2016-08-25 09:52] LABS: INTERNATIONAL NORMAL RATI 1.1 UNITS (-); PARTIAL THROMBO TIME 26.9 SEC (22.5-37.2)
[2016-08-25 10:01] LABS: CHEST PAIN PROFILE TAT 0 Hrs 23 Mins; DIRECT BILIRUBIN 0.1 MG/DL (0.0-0.4); INDIRECT BILIRUBIN(NOT ORDER) 0.3 MG/DL (0.1-0.9); SGOT(AST) 22 U/L (5-40); SGPT(ALT) 30 U/L (5-65); SODIUM, SERUM 126 MMOL/L (135-148); TOTAL BILIRUBIN 0.4 MG/DL (0-1.2); TOTAL PROTEIN 7.9 G/DL (6.0-8.5); TROPONIN I <0.02 NG/ML (<0.05)
[2016-08-25 10:03] LABS: CHLORIDE, SERUM 91 MMOL/L (96-112); POTASSIUM, SERUM 6.3 MMOL/L (3.5-5.3)
[2016-08-25 10:04] LABS: BUN (BLOOD UREA NITROGEN) 55 MG/DL (6-23); CALCIUM, SERUM 10.1 MG/DL (8.5-10.4); CO2 (CARBON DIOXIDE) 10 MMOL/L (24-34); CREATININE 3.01 MG/DL (0.70-1.30); GFR AFRICAN AMERICAN 25 ML/MIN (>=60); GFR NON AFRICAN AMERICAN 22 ML/MIN (>=60); GLUCOSE, SERUM 815 MG/DL (60-99)
[2016-08-25 10:05] LABS: ALBUMIN 3.6 G/DL (3.5-5.0); ALKALINE PHOSPHATASE 107 U/L (45-117)
[2016-08-25 10:06] LABS: ACETONE MODERATE
[2016-08-25 10:24] LABS: ASCORBIC ACID (UR NOT ORDER) NEG (NEG); BILIRUBIN, URINE NEGATIVE (NEG); ER URINALYSIS TAT 0 Hrs 07 Mins; KETONE, URINE 20 MG/DL (NEG); LEUKOCYTE ESTERASE(NOT OR NEG (NEG); NITRITE (URINE) NEG (NEG); WBC (NOT ORDERED) (RFLEX) 1 (0-5)
[~2016-08-25 10:44] MED LIST changes: +HUMALOG SC; +T PO
[2016-08-25 10:53] LABS: BE (BASE EXCESS) -21.2 MEQ/L (0 +/- 2.5); HCO3 (ACTUAL BICARBONATE) 6.9 MEQ/L (23-27); HEMOBLOGIN CONTENT 12.7 G/DL (14-18); INSTRUMENT SERIAL # 8087; METHEMOGLOBIN 0.5 % (0-3); O2 CONTENT 17.1 VOL% (18-24); OPERATOR ID 14335; PCO2 (CO2 TENSION) 23 MMHG (35-45); PO2 (O2 TENSION) 104 MMHG (79-93); SAMPLE Arterial
[2016-08-25 13:42] LABS: AMPHETAMINES (NOT ORD) NEG (NEG); BARBITURATES (NOT ORDERED NEG (NEG); BENZODIAZEPINES (NOT ORD) NEG (NEG); CANNABINOIDS (THC) NEG (NEG); COCAINE (NOT ORDERED) POS (NEG); OPIATES NEG (NEG); PHENCYCLIDINE(PCP) NEG (NEG); TRICYCLICS NEG (NEG)
[2016-08-25 14:43] LABS: BUN (BLOOD UREA NITROGEN) 53 MG/DL (6-23); CALCIUM, SERUM 9.7 MG/DL (8.5-10.4); CHLORIDE, SERUM 97 MMOL/L (96-112); CO2 (CARBON DIOXIDE) 14 MMOL/L (24-34); CPK (IF ELEVATED MB BANDS) 98 U/L (0-200); GFR AFRICAN AMERICAN 28 ML/MIN (>=60); GFR NON AFRICAN AMERICAN 24 ML/MIN (>=60); GLUCOSE, SERUM 493 MG/DL (60-99); PHOSPHORUS, SERUM 4.9 MG/DL (2.5-4.5); POTASSIUM, SERUM 5.1 MMOL/L (3.5-5.3); SODIUM, SERUM 134 MMOL/L (135-148); TROPONIN I <0.02 NG/ML (<0.05)
[2016-08-25 15:22] LABS: PROCALCITONIN 0.26 ng/mL (<0.5)
[2016-08-25 18:54] LABS: BUN (BLOOD UREA NITROGEN) 50 MG/DL (6-23); CHLORIDE, SERUM 102 MMOL/L (96-112); CREATININE 2.61 MG/DL (0.70-1.30); GFR AFRICAN AMERICAN 30 ML/MIN (>=60); GFR NON AFRICAN AMERICAN 26 ML/MIN (>=60); POTASSIUM, SERUM 4.9 MMOL/L (3.5-5.3); SODIUM, SERUM 130 MMOL/L (135-148)
[2016-08-25 18:55] LABS: CO2 (CARBON DIOXIDE) 15 MMOL/L (24-34); GLUCOSE, SERUM 313 MG/DL (60-99); PHOSPHORUS, SERUM 2.6 MG/DL (2.5-4.5)
[2016-08-26 01:13] LABS: BUN (BLOOD UREA NITROGEN) 40 MG/DL (6-23); CALCIUM, SERUM 8.3 MG/DL (8.5-10.4); CHLORIDE, SERUM 106 MMOL/L (96-112); CO2 (CARBON DIOXIDE) 23 MMOL/L (24-34); CREATININE 2.29 MG/DL (0.70-1.30); GFR AFRICAN AMERICAN 35 ML/MIN (>=60); GFR NON AFRICAN AMERICAN 31 ML/MIN (>=60); GLUCOSE, SERUM 140 MG/DL (60-99); PHOSPHORUS, SERUM 2.1 MG/DL (2.5-4.5); POTASSIUM, SERUM 4.4 MMOL/L (3.5-5.3); SODIUM, SERUM 138 MMOL/L (135-148)
[2016-08-26 07:53] LABS: BASOPHILS 0.3 %; BASOPHILS ABSOLUTE 0.02 10/3/uL (0.0-0.16); EOSINOPHILS 0.9 %; EOSINOPHILS ABSOLUTE 0.07 10/3/uL (0.0-0.53); HEMOGLOBIN 10.9 g/dL (13.6-17.8); IMMATURE GRANULOCYTES 0.1 %; IMMATURE GRANULOCYTES ABSOLUTE 0.01 10/3/uL (0.0-0.11); LYMPHOCYTES 31.8 %; LYMPHOCYTES ABSOLUTE 2.34 10/3/uL (0.67-4.30); MEAN CORPUSCULAR HEMOGLOB 28.5 pg (26.0-34.0); MEAN PLATELET VOLUME 9.4 fL (9.2-13.0); MONOCYTES 6.8 %; NEUTROPHILS 60.1 %; NEUTROPHILS ABSOLUTE 4.43 10/3/uL (2.02-8.40); PLATELET COUNT 289 10/3/uL (150-400); RBC DISTRIBUTION WIDTH 14.9 % (12.0-16.0); RED CELL COUNT 3.83 10/6/uL (4.7-6.1); WHITE BLOOD CELLS 7.4 10/3/uL (4.5-10.5)
[2016-08-26 07:54] LABS: HEMATOCRIT 32.2 % (40.0-51.0); MANUAL DIFF NO %; MEAN CORPUS HGB CONC 33.9 g/dL (32.0-36.0); MEAN CORPUSCULAR VOLUME 84.1 fL (80-100)
[2016-08-26 08:13] LABS: CALCIUM, SERUM 8.4 MG/DL (8.5-10.4); CHLORIDE, SERUM 106 MMOL/L (96-112); CO2 (CARBON DIOXIDE) 24 MMOL/L (24-34); GFR AFRICAN AMERICAN 37 ML/MIN (>=60); GFR NON AFRICAN AMERICAN 32 ML/MIN (>=60); GLUCOSE, SERUM 168 MG/DL (60-99); PHOSPHORUS, SERUM 1.8 MG/DL (2.5-4.5); SODIUM, SERUM 136 MMOL/L (135-148)
[2016-08-26 08:14] LABS: BUN (BLOOD UREA NITROGEN) 34 MG/DL (6-23)
[2016-08-27 08:38] LABS: CALCIUM, SERUM 8.5 MG/DL (8.5-10.4); CHLORIDE, SERUM 107 MMOL/L (96-112); CO2 (CARBON DIOXIDE) 26 MMOL/L (24-34); SGOT(AST) 52 U/L (5-40); SGPT(ALT) 29 U/L (5-65); SODIUM, SERUM 137 MMOL/L (135-148); TOTAL BILIRUBIN 0.2 MG/DL (0-1.2)
[2016-08-27 08:39] LABS: A/G RATIO 0.8 (0.7-1.9); ALBUMIN 2.7 G/DL (3.5-5.0); ALKALINE PHOSPHATASE 80 U/L (45-117); BUN (BLOOD UREA NITROGEN) 16 MG/DL (6-23); CREATININE 1.57 MG/DL (0.70-1.30); GFR AFRICAN AMERICAN 56 ML/MIN (>=60); GFR NON AFRICAN AMERICAN 48 ML/MIN (>=60); GLOBULIN 3.6 G/DL (2.5-4.1); GLUCOSE, SERUM 232 MG/DL (60-99); PHOSPHORUS, SERUM 2.5 MG/DL (2.5-4.5); POTASSIUM, SERUM 5.1 MMOL/L (3.5-5.3); TOTAL PROTEIN 6.3 G/DL (6.0-8.5)
[2016-08-30 04:51] LABS: BUN (BLOOD UREA NITROGEN) 27 MG/DL (6-23); CALCIUM, SERUM 9.8 MG/DL (8.5-10.4); CHLORIDE, SERUM 100 MMOL/L (96-112); CO2 (CARBON DIOXIDE) 26 MMOL/L (24-34); CREATININE 1.37 MG/DL (0.70-1.30); GFR AFRICAN AMERICAN 66 ML/MIN (>=60); GFR NON AFRICAN AMERICAN 57 ML/MIN (>=60); GLUCOSE, SERUM 128 MG/DL (60-99); POTASSIUM, SERUM 4.9 MMOL/L (3.5-5.3); SODIUM, SERUM 134 MMOL/L (135-148)
[2016-10-12] MEDS ORDERED: T PO (22:48)
[2016-10-12] MEDS ORDERED: COREG PO (22:48)
[2016-10-12] MEDS ORDERED: ASAB PO (22:48)
[2016-10-12] MEDS ORDERED: FOLIC PO (23:07)
[2016-10-12] MEDS ORDERED: INSNOVR SC (23:08)
[2016-10-12] MEDS ORDERED: Humalog Inj SC (23:08)
[2016-10-12] MEDS ORDERED: LEVEMIR SC (23:08)
[2016-10-12] MEDS ORDERED: FLOMAX PO (23:09)
[2016-10-20] MEDS ORDERED: DSS PO (12:02)
[2016-10-20] MEDS ORDERED: MAG CITRATE PO (12:03)
[2016-10-20] MEDS ORDERED: MOMUD PO (12:04)
[2016-10-20] MEDS ORDERED: LEVEMIR SC (12:04)
[2016-10-20] MEDS ORDERED: DUONEB INH (12:11)
[2016-10-30] MEDS ORDERED: *UNABLE3 ×2 (08:49→08:51)
[2016-10-30] MEDS ORDERED: FLOMAX4 PO (08:52)
[2016-10-30] MEDS ORDERED: HUMALOG SC (08:52)
[2016-10-30] MEDS ORDERED: COREG3 PO (08:52)
[2016-10-30] MEDS ORDERED: LEVEMIR SC (08:53)
[2016-10-31] MEDS ORDERED: LEVEMIR SC (14:16)
[2016-10-31] MEDS ORDERED: VITAMIN C PO (14:17)
[2016-10-31] MEDS ORDERED: Multiple Vit Tab (14:17)
[2016-11-03] MEDS ORDERED: COREG6 PO (09:13)
== END 2016-08-31 19:11 | disposition home or self-care (01) | DRG 638 ==
LOC: ER 10:44 → 5NO 10:53 → 4SO 08-30 14:25
PROVIDERS: Emergency Medicine; Internal Medicine; Internal Medicine Critical Care Medicine
PROC: 4A02X4A Measurement of Cardiac Electrical Activity, Guidance, External Approach (ICD-10-PCS; principal; 2016-08-25)
PROC: 02HV33Z Insertion of Infusion Device into Superior Vena Cava, Percutaneous Approach (ICD-10-PCS; principal; 2016-08-25)
DX: E10.10 Type 1 diabetes mellitus with ketoacidosis without coma (principal); N17.9 Acute kidney failure, unspecified; Z91.14 Patient's other noncompliance with medication regimen; N18.9 Chronic kidney disease, unspecified; I12.9 Hypertensive chronic kidney disease with stage 1 through stage 4 chronic kidney disease, or unspecified chronic kidney disease; F14.10 Cocaine abuse, uncomplicated; F17.210 Nicotine dependence, cigarettes, uncomplicated; J44.9 Chronic obstructive pulmonary disease, unspecified; Z91.128 Patient's intentional underdosing of medication regimen for other reason; Z85.51 Personal history of malignant neoplasm of bladder; Z86.73 Personal history of transient ischemic attack (TIA), and cerebral infarction without residual deficits; E87.5 Hyperkalemia; E86.0 Dehydration; Z79.82 Long term (current) use of aspirin; Z79.4 Long term (current) use of insulin
CPT/HCPCS: 36569; 36600; 71010; 80048; 80053; 80076; 80305; 81001; 82009; 82550; 82805; 82962; 83036; 83735; 84100; 84145; 84484; 85025; 85610; 85730; 87641; 93005; 94640; 96374; 99291; A9270-GY; C1751; C9113; J3473; J3475